=== PATIENT | male | born 1955 | race Caucasian/White ===

== ENCOUNTER 2016-08-06 07:18 | Emergency (ER) | payer OTHER ==
[2016-08-06 07:51] LABS: BASO # 0.1 K/uL (0.0-0.2); EOS # 0.2 K/uL (0.0-0.7); EOS % 4.3 % (0.0-4.0); HEMATOCRIT 43.3 % (35.0-51.0); LYMPH # 2.1 K/uL (1.0-4.3); LYMPH % 35.9 % (20.0-40.0); MEAN CELL VOLUME 90.7 fL (80.0-94.0); MEAN CORPUSCULAR HEMOGLOBIN 29.6 pg (27.0-31.0); MEAN CORPUSCULAR HGB CONC 32.6 g/dL (33.0-37.0); MEAN PLATELET VOLUME 9.2 fL (7.2-11.7); MONO # 0.4 K/uL (0.0-0.8); MONO % 7.7 % (0.0-10.0); NRBC % 0.1 % (0.0-2.0); RED CELL DISTRIBUTION WIDTH 14.3 % (11.5-14.5); WHITE BLOOD COUNT 5.7 K/uL (4.8-10.8)
[2016-08-06 08:22] LABS: CHLORIDE 104 mmol/L (98-107); SODIUM 141 mmol/L (132-148)
[2016-08-06 08:23] LABS: POTASSIUM 3.9 mmol/L (3.6-5.2)
[2016-08-06 08:25] LABS: ALB/GLOB RATIO 1.3 (1.0-2.1); ALKALINE PHOSPHATASE 57 U/L (38-126); ALT/SGPT 25 U/L (21-72); AST/SGOT 27 U/L (17-59); BILIRUBIN,TOTAL 0.7 mg/dL (0.2-1.3); BLOOD UREA NITROGEN 14 mg/dL (9-20); CARBON DIOXIDE 25 mmol/L (22-30); GFR AFRICAN-AMERICAN > 60; GLUCOSE,RANDOM 160 mg/dL (75-110); TOTAL PROTEIN 7.1 g/dL (6.3-8.3)
[2016-08-06 08:26] LABS: CALCIUM 8.8 mg/dl (8.6-10.4)
[2016-08-06] MEDS ORDERED: Sodium Chloride 0.9% 1,000 ML IV ONE (08:37)
[2016-08-06] MEDS ORDERED: Sodium Chloride 0.9% 1,000 ML ONE (08:48)
--- NOTE | 2016-08-06 09:13 | RAD ---
PROCEDURE: CHEST RADIOGRAPH, 1 VIEW HISTORY: chest pain COMPARISON: None available. FINDINGS: LUNGS: Elevated right hemidiaphragm. Venous congestion. Linear atelectatic changes in the right midlung zone. Confluent airspace opacification at the right lung base. Biapical pleural thickening with upper lobe granulomatous changes. PLEURA: No pneumothorax or pleural fluid seen. CARDIOVASCULAR: Normal. OSSEOUS STRUCTURES: No significant abnormalities. VISUALIZED UPPER ABDOMEN: Normal. OTHER FINDINGS: None. IMPRESSION: Elevated right hemidiaphragm. Venous congestion. Linear atelectatic changes in the right midlung zone. Confluent airspace opacification at the right lung base. Biapical pleural thickening with upper lobe granulomatous changes.
--- NOTE | 2016-08-06 09:50 | C.PDOC ---
History Of Present Illness 61 y/o male presents to the ED complaining of chest pain at 5 am this morning. He describes the pain as sharp, subxiphoid, and non-radiating. Patient reports [place] [facility] [place], admitted and released after a negative work up. Patient also notes intermittent episodes of dizziness. Denies any fever, cough, nausea, vomiting, shortness of breath, headache, or other complaints. Chief Complaint (Nursing): Chest Pain History Per: Patient History/Exam Limitations: no limitations Onset/Duration Of Symptoms: Hrs, Persistent Current Symptoms Are (Timing): Still Present Quality: Sharp Recent travel outside of the [place]: No Past Medical History Reviewed: Historical Data, Nursing Documentation, Vital Signs Vital Signs: Last Vital Signs Temp 97 F L 08/06/16 07:31 Pulse 79 08/06/16 07:31 Resp 18 08/06/16 07:31 BP 151/93 H 08/06/16 07:31 Pulse Ox 96 08/06/16 10:48 - Medical History PMH: HTN Surgical History: No Surg Hx Family History: States: Unknown Family Hx - Social History Hx Tobacco Use: No Hx Alcohol Use: No Hx Substance Use: No - Immunization History Hx Tetanus Toxoid Vaccination: No Hx Influenza Vaccination: No Hx Pneumococcal Vaccination: No Review Of Systems Except As Marked, All Systems Reviewed And Found Negative. Constitutional: Negative for: Fever Cardiovascular: Positive for: Chest Pain (subxiphoid) Respiratory: Negative for: Cough, Shortness of Breath Gastrointestinal: Negative for: Nausea, Vomiting Neurological: Positive for: Dizziness. Negative for: Headache Physical Exam - Physical Exam Appears: Non-toxic, No Acute Distress Skin: Normal Color, Warm, Dry, No Rash Head: Atraumatic, Normacephalic Eye(s): bilateral: Normal Inspection, PERRL, EOMI Oral Mucosa: Moist Neck: Normal ROM, Supple Chest: Symmetrical, No Tenderness Cardiovascular: Rhythm Regular Respiratory: Normal Breath Sounds, No Rales, No Rhonchi, No Wheezing Gastrointestinal/Abdominal: Normal Exam, Soft, No Tenderness Back: Normal Inspection, No CVA Tenderness Extremity: Normal ROM, No Swelling Neurological/Psych: Oriented x3, Normal Speech, Normal Cognition ED Course And Treatment - Laboratory Results Result Diagrams: 08/06/16 07:46 08/06/16 07:46 ECG: Interpreted By Me ECG Rhythm: Sinus Rhythm ECG Interpretation: Normal Interpretation Of ECG: normal axis, normal intervals Rate From EC (bpm) O2 Sat by Pulse Oximetry: 96 (ra) Pulse Ox Interpretation: Normal - Other Rad Chest X-Ray X-Ray: Viewed By Me, Read By Radiologist (Zeus Siddiqui MD) Interpretation: IMPRESSION: Elevated right hemidiaphragm. Venous congestion. Linear atelectatic changes in the right midlung zone. Confluent airspace opacification at the right lung base. Biapical pleural thickening with upper lobe granulomatous changes. Progress Note: Plan: EKG, CXR, Left Foot X-Ray, Blood Work, Antivert PO, IV Fluids. Medical Decision Making Medical Decision Makin:25pm - Patient feeling better. Workup reviewed. Patient to be discharged with Rx and follow up instructions. Disposition - Disposition Referrals: Ziyad Day, [Non-Staff] - Disposition: HOME/ ROUTINE Disposition Time: 12:20 Condition: IMPROVED Additional Instructions: Thank you for letting us take care of you today. Your provider was Dr. Morgan. You were treated for dizziness and foot pain. The emergency medical care you received today was directed at your acute symptoms. If you were prescribed any medication, please fill it and take as directed. It may take several days for your symptoms to resolve. Return to the Emergency Department if your symptoms worsen, do not improve, or if you have any other problems. Please contact your doctor or call one of the physicians/clinics you have been referred to that are listed on the Patient Visit Information form that is included in your discharge packet. Bring any paperwork you were given at discharge with you along with any medications you are taking to your follow up visit. Our treatment cannot replace ongoing medical care by a primary care provider (PCP) outside of the emergency department. Thank you for allowing the [facility] team to be part of your care today. Follow up with your doctor in 3-4 days to be re-evaluated. Try to stay off your foot for the next couple of days and apply ice to the area for relief. Prescriptions: Meclizine [Meclizine*] 25 mg PO Q6 PRN #20 tab PRN Reason: Dizziness Instructions: Dizziness (ED) - Clinical Impression Clinical Impression: Dizziness - Scribe Statement The provider has reviewed the documentation as recorded by the Scribe (Nina Gonzalez) Provider Attestation: All medical record entries made by the Scribe were at my direction and personally dictated by me. I have reviewed the chart and agree that the record accurately reflects my personal performance of the history, physical exam, medical decision making, and the department course for this patient. I have also personally directed, reviewed, and agree with the discharge instructions and disposition.
[2016-08-06 12:45] VITALS: BP 137/89; PULSE 81; RESP 17; TEMP 98; O2SAT 98
--- NOTE | 2016-08-06 15:27 | RAD ---
PROCEDURE: Left foot dated HISTORY: r/o fx COMPARISON: No prior study available for comparison TECHNIQUE: Limited two views of the left foot performed FINDINGS: No evidence of acute displaced fracture nor dislocation. The osseous structures intact. No cortical destructive changes. Minimal hallux valgus deformity with minimal DJD 1st MTP joint. There also minor degenerative changes of the bones of the midfoot. Degenerate changes tibiotalar articulation. Small plantar surface calcaneal enthesophyte. IMPRESSION: No acute displaced fracture nor dislocation. Mild DJD as detailed above.
--- NOTE | 2016-08-14 14:35 | CARD ---
APPROVED REPORT EKG Measurement Heart [id number] MI [id number] <Conclusion> Normal sinus rhythm Normal ECG
== END 2016-08-06 12:44 | disposition home or self-care (01) ==
LOC: C.ER 07:18
DX: R42 Dizziness and giddiness (principal); I10 Essential (primary) hypertension
CPT/HCPCS: 36415; 71010; 73620; 80053; 80324; 80345; 80346; 80349; 80353; 80358; 80361; 83880; 83992; 84484; 85025; 99285; J7040

== ENCOUNTER 2017-07-27 15:28 | Emergency (ER) | payer OTHER ==
[2017-07-27 15:36] VITALS: BP 158/85; PULSE 89; RESP 20; TEMP 98.3; O2SAT 97
--- NOTE | 2017-07-27 16:18 | C.PDOC ---
History Of Present Illness 62yo male, presents to ED requesting detox from alcohol, reports last use this morning; patient has history of crack cocaine abuse as well and states last use was last night. He denies any other drug use, suicidal or homicidal ideation. He denies any fever, chills, chest pain, shortness of breath, abdominal pain. No other complaints. REQUESTING ETOH DETOX. LAST USE THIS MORNING. +CRACK COCAINE ABUSE, LAST USE LAST NIGHT. DENIES OTHER DRUG ABUSE. NO SI/SA, ACUTE PSYCHOSIS. EXAM PSYCH CALM COOPERATIVE NAD NO ACUTE INTOX, ACTIVE PSYCHOSIS, NO SI/SA REMAINDER NEG Time Seen by Provider: 07/27/17 16:10 Chief Complaint (Nursing): Substance Abuse History Per: Patient History/Exam Limitations: no limitations Associated Symptoms: denies: Suicidal Thoughts, Suicidal Plan Past Medical History Reviewed: Historical Data, Nursing Documentation, Vital Signs Vital Signs: Last Vital Signs Temp 98.3 F 07/27/17 15:31 Pulse 89 07/27/17 15:31 Resp 20 07/27/17 15:31 BP 158/85 H 07/27/17 15:31 Pulse Ox 97 07/27/17 16:37 - Medical History PMH: HTN Surgical History: No Surg Hx Family History: States: Unknown Family Hx - Social History Hx Tobacco Use: No Hx Alcohol Use: Yes Hx Substance Use: Yes - Immunization History Hx Tetanus Toxoid Vaccination: No Hx Influenza Vaccination: No Hx Pneumococcal Vaccination: No Review Of Systems Except As Marked, All Systems Reviewed And Found Negative. Constitutional: Negative for: Fever, Chills Cardiovascular: Negative for: Chest Pain Respiratory: Negative for: Shortness of Breath Gastrointestinal: Negative for: Abdominal Pain Psych: Negative for: Suicidal ideation Physical Exam - Physical Exam Appears: Non-toxic, No Acute Distress Skin: Normal Color, Warm, Dry Head: Atraumatic, Normacephalic Eye(s): bilateral: Normal Inspection Neck: Normal ROM, Supple Chest: Symmetrical Cardiovascular: Rhythm Regular Respiratory: Normal Breath Sounds Gastrointestinal/Abdominal: Normal Exam, Soft, No Tenderness Back: Normal Inspection Extremity: Normal ROM Neurological/Psych: Oriented x3, Normal Speech, Normal Cognition, Normal Motor, Normal Sensation, Other (calm and cooperative in ER) Gait: Steady ED Course And Treatment O2 Sat by Pulse Oximetry: 97 (RA) Pulse Ox Interpretation: Normal Progress - Re-Evaluation Re-evaluation Note: 07/27/17 16:11 D/W CRISIS ANIBAL NO DETOX BEDS AVIAIL 07/27/17 16:36 S/P EVAL CRISIS, DETOX INFO GIVEN Disposition Counseled Patient/Family Regarding: Diagnosis, Need For Followup - Disposition Referrals: [facility] [Provider Group] Disposition: HOME/ ROUTINE Disposition Time: 16:36 Condition: GOOD Instructions: Alcohol Abuse and Alcoholism (DC) Forms: [employer] (Dominican) - Clinical Impression Clinical Impression: Drug abuse - Scribe Statement The provider has reviewed the documentation as recorded by the Scribe (Coby Minaya) Provider Attestation: All medical record entries made by the Scribe were at my direction and personally dictated by me. I have reviewed the chart and agree that the record accurately reflects my personal performance of the history, physical exam, medical decision making, and the department course for this patient. I have also personally directed, reviewed, and agree with the discharge instructions and disposition.
== END 2017-07-27 17:12 | disposition home or self-care (01) ==
LOC: C.ER 15:28
DX: F19.10 Other psychoactive substance abuse, uncomplicated (principal)